=== PATIENT | male | born 1995 | race Two or more races ===

== ENCOUNTER 2020-01-08 02:25 | Emergency (ER) | payer OTHER ==
[~2020-01-08] VITALS: Ht 167.6 cm; Wt 89.0 kg
--- NOTE | 2020-01-08 02:35 | NUR ---
THIS IS A 24Y M BIB EMS FOUND NAKED IN CIRCUS CIRCUS PARKING LOT. PT PLACED IN A GOWN, COVERED WITH BLANKETS, AND BEAR HUGGER WARMER, FLUIDS INFUSING ON WARMER AT THIS TIME. PT CONNECTED TO ALL MONITORING, CRISS
[2020-01-08] MEDS ORDERED: ONDANSETRON 2MG/ML, 2ML ONE (02:37)
[2020-01-08] MEDS ORDERED: LORazepam 2 MG/ML, 1ML ONE (02:37)
[2020-01-08 02:52] LABS: BASOPHILS # (AUTO) 0.02 x10^3/uL (0-0.1); BASOPHILS % (AUTO) 0 % (0-1); EOSINOPHILS % (AUTO) 0 % (1-7); LYMPHOCYTES # (AUTO) 0.73 x10^3/uL (1-3.4); LYMPHOCYTES % (AUTO) 6 % (22-44); MD NO; MEAN CORPUSCULAR HEMOGLOBIN 31.8 pg (27.5-34.5); MEAN CORPUSCULAR HGB CONC 34.3 g/dL (33.2-36.2); MEAN CORPUSCULAR VOLUME 92.6 fL (81-97); MEAN PLATELET VOLUME 7.5 fL (7.4-10.4); MONOCYTES # (AUTO) 0.46 x10^3/uL (0.2-0.8); MONOCYTES % (AUTO) 4 % (2-9); NEUTROPHILS # (AUTO) 11.17 x10^3/uL (1.8-6.8); NEUTROPHILS % (AUTO) 90 % (42-75); PLATELET COUNT 247 x10^3/uL (130-400); RED CELL DISTRIBUTION WIDTH 13.2 % (9.4-14.8)
[2020-01-08 03:00] LABS: ALBUMIN 4.7 g/dL (3.4-5.0); ANION GAP 8 mmol/L (5-15); CALCIUM 9.3 mg/dL (8.5-10.1); CHLORIDE 106 mmol/L (98-107)
[2020-01-08] MEDS ORDERED: ONDANSETRON 2MG/ML, 2ML IVPush ONE (03:00)
[2020-01-08] MEDS ORDERED: SODIUM CHLORIDE 0.9% 1,000ML IVBOLUS ONE (03:00)
[2020-01-08] MEDS ORDERED: LORazepam 2 MG/ML, 1ML IVPush ONE (03:00)
--- NOTE | 2020-01-08 03:07 | NUR ---
PT RESTING ON GURNEY, EYES CLOSED, RESP EVEN AND UNLABORED, NADN.
[2020-01-08 03:15] LABS: SALICYLATE LEVEL < 1.7 mg/dL (2.8-20.0)
--- NOTE | 2020-01-08 04:06 | NUR ---
PT STILL SLEEPING ON [place] [facility]
--- NOTE | 2020-01-08 05:05 | NUR ---
PT RESTING ON [facility].
--- NOTE | 2020-01-08 06:55 | NUR ---
REPORT RECIEVED FROM [place] SARKAR.
--- NOTE | 2020-01-08 07:03 | NUR ---
PT STEADY AMBULATION.
[2020-01-08 07:04] VITALS: BP 111/49
--- NOTE | 2020-01-08 07:24 | NUR ---
DISCHARGE INSTRUCTIONS REVIEWED. [facility]
== END 2020-01-08 07:40 | disposition home or self-care (01) ==
LOC: EDBD 02:25 → ED 07:09
DX: F16.10 Hallucinogen abuse, uncomplicated (principal); F41.9 Anxiety disorder, unspecified
CPT/HCPCS: 36415; 80048; 80307; 82040; 85025; 96374; 96375; 99284; J2060; J2405; J7030; 99285